=== PATIENT | male | born 1965 | race Caucasian/White ===

== ENCOUNTER 2018-05-01 15:17 | Emergency (ER) | payer OTHER ==
[~2018-05-01] VITALS: Ht 177.8 cm; Wt 74.8 kg
[2018-05-01 17:31] VITALS: BP 145/87
== END 2018-05-01 17:32 | disposition home or self-care (01) ==
LOC: ER 15:17
DX: F10.10 Alcohol abuse, uncomplicated (principal); F17.200 Nicotine dependence, unspecified, uncomplicated; Z91.030 Bee allergy status

== ENCOUNTER 2018-08-01 17:48 | Emergency (ER) | payer OTHER ==
[~2018-08-01] VITALS: Ht 172.7 cm; Wt 65.8 kg
[2018-08-01 21:56] VITALS: BP 130/71
== END 2018-08-01 22:15 | disposition home or self-care (01) ==
LOC: ER 17:48
DX: F10.129 Alcohol abuse with intoxication, unspecified (principal); H10.9 Unspecified conjunctivitis; F17.210 Nicotine dependence, cigarettes, uncomplicated; Z91.030 Bee allergy status

== ENCOUNTER 2018-10-02 12:15 | Emergency (ER) | payer OTHER ==
[~2018-10-02] VITALS: Ht 177.8 cm; Wt 74.8 kg
[2018-10-02 12:46] LABS: HEMATOCRIT 37.2 % (42.0-52.0); HEMOGLOBIN 12.8 gm/dL (14.0-18.0); MCHC 34.5 g/dL (28.0-37.0); MCV 95.7 fL (80.0-100.0); PLATELET COUNT 545 thou/uL (150-400); RBC 3.89 mil/uL (4.50-6.00); RDW 13.4 % (10.5-14.5); WBC 7.3 thou/uL (4.0-11.0)
[2018-10-02 12:49] LABS: CALCIUM 9.3 mg/dL (8.5-10.1); CREATININE 0.6 mg/dL (0.7-1.3); POTASSIUM 3.6 mmol/L (3.5-5.1)
[2018-10-02 12:55] LABS: ALBUMIN 3.1 g/dL (3.4-5.0); TOTAL BILIRUBIN 0.2 mg/dL (<0.1-1.0); TOTAL PROTEIN 8.9 g/dL (6.4-8.2)
[2018-10-02 13:10] LABS: ABSOLUTE NEUTROPHILS 4.2 thou/uL (1.4-8.2)
[2018-10-02 13:11] LABS: ATYPICAL LYMPHS 2 %; LARGE PLATELETS FEW
[2018-10-02 13:12] LABS: PLATELET ESTIMATE INCREASED
[2018-10-02 13:20] VITALS: BP 132/75
--- NOTE | 2018-10-02 13:49 | EKG ---
[address] [place] [address] ELECTROCARDIOGRAM REPORT Name: MANPREET JENKINS Room #: REG Cristino#: [id number] Admission: 10/02/18 Attend Phys: Discharge: Date of : 61 Report #: [id number] THIS REPORT FOR: //name// [facility] ED Test Date: 2018-10-02 Test Time: 12:55:27 Pat Name: MANPREET JENKINS Department: Room: Gender: Buy Boat Operator: albert : 1965 Requested By: Candida Maddox Order Number: [id number] MD: Gera Owen Measurements Intervals [place] Rate: 100 P: 70 AK: 148 QRS: 72 QRSD: 90 T: 71 QT: 357 QTc: 461 Interpretive Statements Sinus tachycardia Probable left atrial enlargement No previous ECG available for comparison Electronically Signed On 10-02-2018 13:48:44 CDT by Gera Owen [email or web address] <ELECTRONICALLY SIGNED> By: Gera Owen MD 10/02/18 1348 1255 1255 Gera Owen MD /EPI
== END 2018-10-02 14:52 | disposition home or self-care (01) ==
LOC: ER 12:15
PROVIDERS: Nurse Practitioner Family
DX: F10.129 Alcohol abuse with intoxication, unspecified (principal); Z59.0 Homelessness; F17.210 Nicotine dependence, cigarettes, uncomplicated; Z91.030 Bee allergy status; Y90.0 Blood alcohol level of less than 20 mg/100 ml

== ENCOUNTER 2019-07-08 17:05 | Emergency (ER) | payer OTHER ==
[~2019-07-08] VITALS: Ht 177.8 cm; Wt 68.0 kg
[2019-07-08] MEDS ORDERED: PREDNISONE 20 M20 MG PO (17:51)
[2019-07-08 18:23] VITALS: BP 123/73
== END 2019-07-08 18:24 | disposition home or self-care (01) ==
LOC: ER 17:05
DX: G56.31 Lesion of radial nerve, right upper limb (principal); F10.129 Alcohol abuse with intoxication, unspecified; F17.210 Nicotine dependence, cigarettes, uncomplicated; Z91.030 Bee allergy status; Y90.9 Presence of alcohol in blood, level not specified

== ENCOUNTER 2019-10-09 23:08 | Emergency (ER) | payer OTHER ==
[~2019-10-09] VITALS: Ht 177.8 cm; Wt 68.0 kg
[~2019-10-09 23:08] MED LIST: PREDNISONE 20 M20 MG PO
[2019-10-09] MEDS ORDERED: LISINOPRIL20 MG PO (23:12)
[2019-10-10 00:13] VITALS: BP 169/86
== END 2019-10-10 00:14 | disposition home or self-care (01) ==
LOC: ER 23:08
DX: F10.29 Alcohol dependence with unspecified alcohol-induced disorder (principal); I10 Essential (primary) hypertension; F17.210 Nicotine dependence, cigarettes, uncomplicated; Z79.899 Other long term (current) drug therapy; Z91.030 Bee allergy status; Y90.9 Presence of alcohol in blood, level not specified

== ENCOUNTER 2019-10-15 10:44 | Emergency (ER) | payer OTHER ==
[~2019-10-15] VITALS: Ht 177.8 cm; Wt 72.6 kg
[~2019-10-15 10:44] MED LIST changes: +LISINOPRIL20 MG PO
[2019-10-15 16:15] VITALS: BP 114/83
== END 2019-10-15 16:15 | disposition home or self-care (01) ==
LOC: ER 10:44
DX: S02.2XXA Fracture of nasal bones, initial encounter for closed fracture (principal); S60.512A Abrasion of left hand, initial encounter; S60.511A Abrasion of right hand, initial encounter; F10.10 Alcohol abuse, uncomplicated; F17.210 Nicotine dependence, cigarettes, uncomplicated; I10 Essential (primary) hypertension; Z91.030 Bee allergy status; Z79.899 Other long term (current) drug therapy; Z98.890 Other specified postprocedural states; W22.8XXA Striking against or struck by other objects, initial encounter; Y93.89 Activity, other specified; Y92.89 Other specified places as the place of occurrence of the external cause; Y99.9 Unspecified external cause status; Y90.9 Presence of alcohol in blood, level not specified

== ENCOUNTER 2019-11-13 14:04 | Emergency (ER) | payer OTHER ==
[~2019-11-13] VITALS: Ht 177.8 cm; Wt 68.0 kg
[2019-11-13 17:15] VITALS: BP 117/69
[2019-11-14] MEDS ORDERED: FOLIC ACID1 MG PO (17:03)
[2019-11-14] MEDS ORDERED: B12 ACTIVE1000 MCG PO (17:03)
== END 2019-11-13 17:22 | disposition home or self-care (01) ==
LOC: ER 14:04
DX: F10.129 Alcohol abuse with intoxication, unspecified (principal); I10 Essential (primary) hypertension; Z79.899 Other long term (current) drug therapy; Z91.030 Bee allergy status; Y90.9 Presence of alcohol in blood, level not specified

== ENCOUNTER 2019-11-14 15:47 | Emergency (ER) | payer OTHER ==
[~2019-11-14] VITALS: Ht 177.8 cm; Wt 68.0 kg
[2019-11-14 16:29] LABS: HEMOGLOBIN 11.4 gm/dL (14.0-18.0); MCH 27.6 pg (26.0-34.0); MCHC 32.7 g/dL (28.0-37.0); MCV 84.6 fL (80.0-100.0); PLATELET COUNT 337 thou/uL (150-400); RBC 4.14 mil/uL (4.50-6.00); RDW 19.9 % (10.5-14.5); WBC 3.6 thou/uL (4.0-11.0)
[2019-11-14 16:32] LABS: ANION GAP 13 mmol/L (7-16); BUN 3 mg/dL (7-18); CALCIUM 9.1 mg/dL (8.5-10.1); CHLORIDE 100 mmol/L (98-107); CO2 26 mmol/L (21-32); CREATININE 0.6 mg/dL (0.7-1.3); GLUCOSE 96 mg/dL (74-106); POTASSIUM 3.6 mmol/L (3.5-5.1); SODIUM 139 mmol/L (136-145)
[2019-11-14 16:41] LABS: MAGNESIUM 1.5 mg/dL (1.8-2.4); PHOSPHORUS 3.5 mg/dL (2.5-4.9); TROPONIN-I <0.06 ng/mL (<0.06)
[2019-11-14 16:49] LABS: ABSOLUTE NEUTROPHILS 0.9 thou/uL (1.4-8.2); ANISOCYTOSIS 1+; HYPOCHROMASIA SLIGHT; POLYCHROMASIA OCCASIONAL; TARGET CELLS OCCASIONAL
[2019-11-14] MEDS ORDERED: FOLIC ACID1 MG PO (17:03)
[2019-11-14] MEDS ORDERED: B12 ACTIVE1000 MCG PO (17:03)
[2019-11-14 17:54] VITALS: BP 105/54
== END 2019-11-14 17:54 | disposition home or self-care (01) ==
LOC: ER 15:47
PROVIDERS: Emergency Medicine
DX: R20.2 Paresthesia of skin (principal); I10 Essential (primary) hypertension; F17.210 Nicotine dependence, cigarettes, uncomplicated; Z79.899 Other long term (current) drug therapy; Z91.030 Bee allergy status

== ENCOUNTER 2019-11-30 16:36 | Emergency (ER) | payer OTHER ==
[~2019-11-30] VITALS: Ht 177.8 cm; Wt 68.0 kg
[~2019-11-30 16:36] MED LIST changes: +B12 ACTIVE1000 MCG PO; +FOLIC ACID1 MG PO
[2019-11-30 19:02] LABS: HEMATOCRIT 28.6 % (42.0-52.0); HEMOGLOBIN 9.5 gm/dL (14.0-18.0); MCH 27.8 pg (26.0-34.0); MCV 84.3 fL (80.0-100.0); PLATELET COUNT 356 thou/uL (150-400); RDW 20.2 % (10.5-14.5); WBC 6.1 thou/uL (4.0-11.0)
[2019-11-30 19:05] LABS: CALCIUM 8.7 mg/dL (8.5-10.1); CREATININE 0.5 mg/dL (0.7-1.3); POTASSIUM 3.2 mmol/L (3.5-5.1)
[2019-11-30 19:32] LABS: ABSOLUTE NEUTROPHILS 3.4 thou/uL (1.4-8.2); ANISOCYTOSIS 2+
[2019-11-30 19:34] LABS: MICROCYTES FEW
[2019-11-30 19:35] LABS: MACROCYTES FEW; OVALOCYTES OCCASIONAL; POIKILOCYTOSIS SLIGHT
[2019-11-30 23:00] VITALS: BP 122/77
== END 2019-11-30 23:00 | disposition home or self-care (01) ==
LOC: ER 16:36
PROVIDERS: Emergency Medicine
DX: R19.7 Diarrhea, unspecified (principal); I10 Essential (primary) hypertension; F17.210 Nicotine dependence, cigarettes, uncomplicated; Z91.030 Bee allergy status; Z79.899 Other long term (current) drug therapy

== ENCOUNTER 2019-12-07 16:48 | Emergency (ER) | payer OTHER ==
[~2019-12-07] VITALS: Ht 177.8 cm; Wt 68.0 kg
[2019-12-07 19:03] VITALS: BP 122/78
== END 2019-12-07 19:30 | disposition home or self-care (01) ==
LOC: ER 16:48
DX: F10.10 Alcohol abuse, uncomplicated (principal); R32 Unspecified urinary incontinence; I10 Essential (primary) hypertension; F17.210 Nicotine dependence, cigarettes, uncomplicated; Z98.890 Other specified postprocedural states; Z79.899 Other long term (current) drug therapy; Z91.030 Bee allergy status

== ENCOUNTER 2020-02-20 17:41 | Emergency (ER) | payer OTHER ==
[2020-02-20 21:03] LABS: ABSOLUTE NEUTROPHILS 2.7 thou/uL (1.4-8.2); BASOPHILS 0.8 % (0.0-2.0); EOSINOPHILS 0.5 % (0.0-3.0); HEMATOCRIT 36.7 % (42.0-52.0); LYMPHOCYTES 34.1 % (24.0-44.0); MCH 27.3 pg (26.0-34.0); MCHC 32.7 g/dL (28.0-37.0); MCV 83.5 fL (80.0-100.0); MONOCYTES 9.8 % (1.0-8.0); PLATELET COUNT 548 thou/uL (150-400); POLYS 54.8 % (36.0-66.0); WBC 4.9 thou/uL (4.0-11.0)
[2020-02-20 21:21] LABS: ANION GAP 15 mmol/L (7-16); BUN 7 mg/dL (7-18); CHLORIDE 96 mmol/L (98-107); CO2 23 mmol/L (21-32); CREATININE 0.7 mg/dL (0.7-1.3); GLUCOSE 93 mg/dL (74-106); LIPASE 317 U/L (73-393); POTASSIUM 3.6 mmol/L (3.5-5.1); SODIUM 134 mmol/L (136-145); TROPONIN-I <0.06 ng/mL (<0.06)
[2020-02-20 22:32] VITALS: BP 157/82
--- NOTE | 2020-02-21 07:17 | EKG ---
[address] [employer] [place] [address] ELECTROCARDIOGRAM REPORT Name: MANPREET JENKINS Room #: DEP Cristino#: [id number] Admission: 02/20/20 Attend Phys: Discharge: 02/20/20 Date of : 61 Report #: [id number] [facility] ED Test Date: 2020-02-20 Test Time: 20:49:37 Pat Name: MANPREET JENKINS Department: Room: Gender: M Highway Maintenance Technician: suha arcos : 1965 Requested By: Harjeet Duckworth Order Number: [id number] MD: Ángel Dinero Measurements Intervals [place] Rate: 101 P: 74 W[place]: 149 QRS: 58 QRSD: 81 T: 78 QT: 348 QTc: 452 Interpretive Statements Sinus tachycardia Anteroseptal infarct, old Compared to ECG 10/02/2018 12:55:27 Myocardial infarct finding now present Electronically Signed On 02-21-2020 7:17:45 AUTOMOTIVE SALES EXECUTIVE by Ángel Dinero [email or web address] <ELECTRONICALLY SIGNED> By: Ángel Dinero MD, [facility] 02/21/20 0717 2049 48 Ángel Dinero MD, FACC /EPI
== END 2020-02-20 22:34 | disposition home or self-care (01) ==
LOC: ER 17:41
PROVIDERS: Emergency Medicine
DX: R07.89 Other chest pain (principal); F10.920 Alcohol use, unspecified with intoxication, uncomplicated; I10 Essential (primary) hypertension; R10.84 Generalized abdominal pain; T68.XXXA Hypothermia, initial encounter; F17.210 Nicotine dependence, cigarettes, uncomplicated; Z98.890 Other specified postprocedural states; Z79.899 Other long term (current) drug therapy; Z91.030 Bee allergy status

== ENCOUNTER 2020-02-21 18:18 | Emergency (ER) | payer OTHER ==
[~2020-02-21] VITALS: Ht 177.8 cm; Wt 77.1 kg
[2020-02-22 00:10] VITALS: BP 148/81
== END 2020-02-22 00:12 | disposition home or self-care (01) ==
LOC: ER 18:18
DX: F10.129 Alcohol abuse with intoxication, unspecified (principal); I10 Essential (primary) hypertension; F17.210 Nicotine dependence, cigarettes, uncomplicated; Z91.030 Bee allergy status; Z79.899 Other long term (current) drug therapy; Y90.9 Presence of alcohol in blood, level not specified

== ENCOUNTER 2020-07-19 12:33 | Emergency (ER) | payer OTHER ==
[~2020-07-19] VITALS: Ht 177.8 cm; Wt 72.6 kg
--- NOTE | ~2020-07-19 | EMS ---
[facility] [address] [place] [address] EMS Patient Care Report Name: MANPREET JENKINS Room #: DEP RACHEL Gregg#: [id number] Admission: 07/19/20 Attend Phys: Discharge: 07/19/20 Date of : 61 Report #: [id number] THIS REPORT FOR: //name// Report Transmitted: 07/19/2020 14:29 EMS Care Summary [facility] Incident [id number] @ 07/19/2020 12:13 Incident Location [address] [place] [address] Patient MANPREET JENKINS Male, 54 Years 1965 Patient Address Patient History Hypertension (HTN),Hyperlipidemia,Enlarged prostate, Patient Allergies No known allergies, Patient Medications Lipitor, Other, Chief Complaint my left arm hurts Disposition Transported No Lights/[place] Dispatch Reason Sick Person Transported To [facility] Narrative Arrived to find pt seated on ground in median, a&ox4, beer cans, water bottles and food cans next to pt. Pt in the presence of [facility] personnel and [employer] police officers. Pt initially reported to [facility] that he received his COVID-19 vaccine yesterday at [facility] and that he has been sweating and can't raise his left arm for [facility] [address] [place] [address] EMS Patient Care Report Name: MANPREET JENKINS Room #: DEP RACHEL Gregg#: [id number] Admission: 07/19/20 Attend Phys: Discharge: 07/19/20 Date of : 61 Report #: [id number] the past day. Pt denies any other complaints to EMS. Pt was able to walk and get up into the MICU without incident. Pt was secured on the cot with cot straps in semi-fowlers position and transported non-emergent to [place] as pt requested. Pt reports that he has been sitting outside in the median since 10-11:00 today. Pt also reports that he has had two tall beers today. Pt reported to EMS that he has had this pain and sweating for three days. Pt denied any other complaints during short transport. Pt was taken to ER Triage area. Pt was able to stand up from the cot and sit down in chair at triage desk. Pt report and transfer of care given to ER economics department chair. Initial Vitals @PTAP: 120,R: 20,BP: 160/98,SpO2: 100, @12:30P: 104,R: 18,BP: 164/89,Pain: 0/10,GCS: 15,Temp: 97.4F,SpO2: 100,Revised Trauma: 12, Assessments @12:30MENTAL:Person Oriented,Time Oriented,Place Oriented,Event Oriented,SKIN:HEENT:LUNG SOUNDS:ABDOMEN:PELVIS//GI:EXTREMITIES:Left Arm: Weakness,Left Arm: Other,Right Arm: No Abnormalities,Left Leg: No Abnormalities,Right Leg: No Abnormalities,PULSE:Radial: 2+ Normal,NEURO:No Abnormalities, Impression Extremity Pain Procedures @12:42Surgical Mask on PatientResponse: Unchanged Timeline CERTIFIED MEDICAL DOSIMETRIST,BP: 160/98 M,PULSE: 120,RR: 20 R,SPO2: 100 Ox,ETCO2: ,BG: ,PAIN: ,GCS: , 12:11,Call Received 12:11,Psap Call 12:13,Dispatched 12:14,En Route 12:20,On Scene 12:21,At Patient 12:26,Depart Scene 12:29,At Destination 12:30,BP: 164/89 M,PULSE: 104,RR: 18 R,SPO2: 100 Ox,ETCO2: ,BG: ,PAIN: 0,GCS: 15, 12:42,Surgical Mask on Patient,Response: Unchanged [facility] [address] [facility] [address] [place] [address] EMS Patient Care Report Name: MANPREET JENKINS Room #: DEP Cristino#: [id number] Admission: 07/19/20 Attend Phys: Discharge: 07/19/20 Date of : 61 Report #: [id number] 12:53,Call Closed Disclaimer [email or web address] Copyright 2020 [employer] This EMS Care Summary contains data elements from the applicable legal record (which may be displayed differently). It is designed to provide pertinent information for the following purposes: continuity of care, clinical quality, and state data reporting. The complete legal record is available to ED staff and administrators of the receiving hospital in [employer]'s Patient Tracker. All data is provided "as is."
[2020-07-19 12:38] VITALS: BP 173/116
== END 2020-07-19 14:21 | disposition home or self-care (01) ==
LOC: ER 12:33
DX: M79.602 Pain in left arm (principal); I10 Essential (primary) hypertension; F10.10 Alcohol abuse, uncomplicated; F17.210 Nicotine dependence, cigarettes, uncomplicated; Z91.030 Bee allergy status

== ENCOUNTER 2020-08-07 18:41 | Emergency (ER) | payer OTHER ==
[~2020-08-07] VITALS: Ht 177.8 cm; Wt 77.1 kg
[2020-08-07 18:56] VITALS: BP 132/76
[2020-08-07 19:29] LABS: HEMATOCRIT 34.4 % (42.0-52.0); HEMOGLOBIN 11.2 gm/dL (14.0-18.0); MCH 22.8 pg (26.0-34.0); MCHC 32.5 g/dL (28.0-37.0); MCV 70.3 fL (80.0-100.0); PLATELET COUNT 136 thou/uL (150-400); RBC 4.89 mil/uL (4.50-6.00); RDW 20.8 % (10.5-14.5); WBC 2.2 thou/uL (4.0-11.0)
[2020-08-07 19:32] LABS: CALCIUM 8.6 mg/dL (8.5-10.1); CREATININE 0.7 mg/dL (0.7-1.3); POTASSIUM 3.6 mmol/L (3.5-5.1)
[2020-08-07 19:38] LABS: ALBUMIN 3.4 g/dL (3.4-5.0); TOTAL BILIRUBIN 0.3 mg/dL (0.2-1.0); TOTAL PROTEIN 7.9 g/dL (6.4-8.2)
[2020-08-07 19:58] LABS: ABSOLUTE NEUTROPHILS 0.9 thou/uL (1.4-8.2)
[2020-08-07 19:59] LABS: ANISOCYTOSIS 1+; HYPOCHROMASIA 1+
== END 2020-08-07 23:31 | disposition home or self-care (01) ==
LOC: ER 18:41
PROVIDERS: Emergency Medicine
DX: F10.129 Alcohol abuse with intoxication, unspecified (principal); I10 Essential (primary) hypertension; F17.210 Nicotine dependence, cigarettes, uncomplicated; Z91.030 Bee allergy status; Y90.8 Blood alcohol level of 240 mg/100 ml or more